=== PATIENT | female | born 1960 | race African-American/Black ===

== ENCOUNTER → 2017-08-07 | Day surgery (SDC) | payer OTHER ==
[~2017-08-07] MED LIST: ATOR40TA49 PO; BUPIVACAINE HCL PF 0.5% 10 ML VIAL ONE; COZA100T PO; K-TA10TA5 PO; KETOROLAC TROMETHAMINE 30 MG/ML (IVP) VIAL ONE; LACTATED RINGER'S 1000 ML INJ 1,000 ML ONE; LEVO25TA36 PO; LEVO50TA51 PO; MEPERIDINE HCL 25 MG/ML VIAL ONE; METO2.5 PO; MIDAZOLAM HCL 2 MG/2 ML VIAL ONE; ONDANSETRON HCL 4 MG/2 ML VIAL IV PUSH ONE; PROPOFOL 200 MG/20 ML AMP IV ONE; SLOWTAB PO; ULTR50TA PO; ceFAZolin 2 GM PREMIX 50 ML ONE; oxyCODONE/ACETAMINOPHEN 5 MG/325 MG TAB ONE
--- NOTE | 2017-08-07 15:57 | TN ---
cc: AMANDA TRAN M.D. DATE OF SURGERY 08/07/2017 PRINCIPAL DIAGNOSIS Papilloma of the left breast. PROCEDURE PERFORMED Left breast needle-localized lumpectomy. SURGEON Amanda Tran MD ANESTHESIA General via LMA device. INDICATION The patient is a 57-year-old -[place] female noted to have multiple masses in the outer left breast. The largest mass was located at 3 o'clock, 5 cm from the nipple and ultrasound-guided core biopsy demonstrated intraductal papilloma. She now presents for excision of the papilloma and the adjacent masses. FINDINGS AT THE TIME OF SURGERY Specimen mammogram did demonstrate an intact wire and biopsy clip and multiple masses were present within the specimen. PROCEDURE PERFORMED After informed consent was obtained and site verification was performed, the patient was brought to the radiology suite where she underwent needle localization of her prior biopsy site. She was then brought to the major operating room where she underwent general anesthesia via LMA device. The left breast was prepped and draped in sterile fashion and she was given a single dose of IV Ancef and sequential compression hose were placed. A radial incision was created at 3 o'clock after anesthetizing with 0.5% Marcaine plain. The wire was immediately identified and secured with a hemostat and cut off at the skin with pin cutters. A 2-0 silk transfixion suture was placed at the wire entry point into the breast tissue and electrocautery and sharp dissection were performed circumferentially around the wire to include breast tissue between 2 and 4 o'clock where the masses were identified. The specimen was oriented with two sutures anteriorly, one short suture superiorly, and one long suture medially. The specimen was then sent to mammography with the findings as noted and was then sent for permanent pathologic evaluation. The medial margin did appear close and this was reexcised with a stitch on the new margin and sent as a separate permanent specimen. Hemostasis was easily obtained with electrocautery and the wound was closed using interrupted 3-0 Vicryl subcutaneous sutures and a 4-0 Monocryl subcuticular suture. Steri-Strips and sterile dressing were applied. The patient tolerated the procedure well with a blood loss of 50 cc. She was extubated in the operating room and brought to recovery room in good condition. All sponge and needle counts were correct at the conclusion of the case. MD PJ Zuñiga/ALLISON /1:25 PM /3:45 PM
== END | disposition home or self-care (01) ==
LOC: ESDC 09:30
PROVIDERS: ATTEND Surgery
DX: D24.2 Benign neoplasm of left breast (principal)
CPT/HCPCS: 00400; 19125; 88307; 88341; 88342; J0690; J1885; J2175; J2250; J2405; J3010; J7120; 88361

== ENCOUNTER → 2017-08-21 | Day surgery (SDC) | payer OTHER ==
[~2017-08-21] MED LIST changes: +KETOROLAC TROMETHAMINE 30 MG/ML (IVP) VIAL IV PUSH ONE; -KETOROLAC TROMETHAMINE 30 MG/ML (IVP) VIAL ONE; +PROPOFOL 100 MG/10 ML INJ IV ONE; -PROPOFOL 200 MG/20 ML AMP IV ONE
--- NOTE | 2017-08-21 14:06 | TN ---
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 PROCEDURE PERFORMED Re-excision of left breast lateral lumpectomy margin. SURGEON Amanda Liu. ANESTHESIA General via LMA device. INDICATION The patient is a 57-year-old -[place] female noted to have an intraductal papilloma and multiple masses between 2 o'clock and 4 o'clock in the left breast, 5 cm from the nipple. She underwent needle-localized excision of the papilloma and adjacent masses and this demonstrated ductal carcinoma in situ with a positive lateral margin. She now presents for re-excision. FINDINGS At the time of surgery the lumpectomy cavity was easily identified with a moderate noninfected seroma and there was no evidence of residual disease. PROCEDURE After informed consent was obtained and site verification was performed, the patient was brought to the major operating room where she underwent general anesthesia via an LMA device. The left breast was prepped and draped in sterile fashion. She was given a single dose of IV Ancef and sequential compression hose were placed. 2 cc of 0.5% marcaine without epinephrine was used to inject the previous 3 o'clock radial lumpectomy incision and lumpectomy cavity. The lumpectomy incision was sharply re-incised and the seroma was evacuated. The lateral margin was sharply demarcated and excised with a stitch on the new margin and this was sent as a permanent specimen. Hemostasis was obtained using electrocautery and the wound was closed using interrupted 3-0 Vicryl subcutaneous sutures and a 4-0 Monocryl subcuticular suture. Steri-Strips and sterile dressing were applied. The patient tolerated the procedure well with minimal blood loss and she was extubated in the operating room and brought to the recovery room in good condition. All sponge and needle counts were correct at the conclusion of the case. MD PJ Zuñiga/TARAN /1:26 PM /1:56 PM [facility]
== END | disposition home or self-care (01) ==
LOC: ESDC 14:36
PROVIDERS: ATTEND Surgery
DX: D05.12 Intraductal carcinoma in situ of left breast (principal)
CPT/HCPCS: 00400; 19301; 88307; J0690; J1885; J2175; J2250; J2405; J3010; J7120